=== PATIENT | female | born 1990 | race Caucasian/White ===

== ENCOUNTER 2017-07-01 08:32 | Inpatient (IN) | payer SELFPAY ==
[~2017-07-01] VITALS: Ht 157.5 cm; Wt 79.4 kg
[~2017-07-01 08:32] MED LIST: FERR-58 PO; PNV1CAPS17 PO
[2017-07-01 09:03] LABS: *URINE HCG, QUAL NEGATIVE (NEGATIVE)
[2017-07-01 09:05] LABS: BASOPHILS % (AUTO) 0.3 % (0.0-2.0); EOSINOPHILS # (AUTO) 0.1 K/uL (0.0-0.7); EOSINOPHILS % (AUTO) 0.6 % (0.0-7.0); HEMATOCRIT 35.4 % (31.2-41.9); HEMOGLOBIN 12.1 g/dL (10.9-14.3); LYMPHOCYTES # (AUTO) 1.5 K/uL (20.0-40.0); LYMPHOCYTES % (AUTO) 15.6 % (20.5-51.5); MEAN CORPUSCULAR HEMOGLOBIN 29.2 uug (24.7-32.8); MEAN CORPUSCULAR HGB CONC 34 g/dL (32.3-35.6); MEAN CORPUSCULAR VOLUME 85.6 fL (75.5-95.3); MONOCYTES # (AUTO) 0.6 K/uL (2.0-10.0); MONOCYTES % (AUTO) 6.5 % (0.0-11.0); NEUTROPHILS # (AUTO) 7.5 K/uL (1.8-8.9); PLATELET COUNT (AUTO) 278 K/uL (179-408); RED BLOOD CELL COUNT(AUTO) 4.14 MIL/uL (3.63-4.92); WHITE BLOOD COUNT (AUTO) 9.7 K/uL (3.8-11.8)
[2017-07-01 09:06] LABS: CREATININE 0.8 mg/dL (0.6-1.3); POTASSIUM 3.6 mmol/L (3.5-5.1)
[2017-07-01 09:12] LABS: BILIRUBIN,DIRECT 0.1 mg/dL (0.0-0.2); BILIRUBIN,TOTAL 0.3 mg/dL (0.2-1.0); TOTAL PROTEIN, SERUM 7.3 g/dL (6.4-8.2)
[2017-07-01 09:15] LABS: *CLARITY,URINE SLIGHTLY CLOUDY (CLEAR)
[2017-07-01 09:16] LABS: *BILIRUBIN,URIN NEGATIVE (NEGATIVE); *BLOOD, URINE TRACE (NEGATIVE); *COLOR,URINE YELLOW (YELLOW); *PROTEIN,URINE 1+ (NEGATIVE); UGLUCOSE NEGATIVE (NEGATIVE)
[2017-07-01 09:17] LABS: *KETONES,URINE TRACE (NEGATIVE); *UROBILINOGEN,URINE 0.2 E.U./dl (NORMAL); BACTERIA,URINE NONE SEEN /HPF (NONE SEEN); LEUKOCYTE ESTERASE ,URINE NEGATIVE (NEGATIVE); MUCUS,URINE MANY /LPF (0-FEW); NITRITE, URINE NEGATIVE (NEGATIVE); RBC,URINE 0-3 /HPF (0-3); SQUAMOUS EPITHELIAL CELL,UR MODERATE /HPF (NONE SEEN)
--- NOTE | 2017-07-01 09:31 | NUR ---
Note wild in EDM - 07/01/17 at 0933 by JOSLYN Patient says he is calling "[employer]" for a ride. Patient discharged to home in stable conditon. Written and verbal after care instructions given to patient. Patient verbalizes understanding of instructions. Marked decreased pains were expressed by patient.
--- NOTE | 2017-07-01 09:32 | NUR ---
Patient is resting comfortably in bed with eyes closed. PATIENT IS PAIN FREE AT THIS TIME.
--- NOTE | 2017-07-01 10:21 | NUR ---
"No med-surg bed or nurse available" per nursing catastrophe claims supervisor Maty. Patient will be on hold in ER until some discharges are done & completed in the 2nd floor medical-surgical unit for now. Patient and spouse notified. NPO status maintained and observed by patient.
--- NOTE | 2017-07-01 11:50 | NUR ---
Patient is resting and still waiting for med-surg bed/nurse, no acute change in condition seen.
--- NOTE | 2017-07-01 14:30 | NUR ---
Patient received in med/surg. No evidence of distress noted. Patient was compliant and admission process started.
[2017-07-01 16:57] VITALS: BP 109/68
--- NOTE | 2017-07-01 17:30 | NUR ---
Patient left the building without notifying staff. Intercepted by security but patient continued to walk out the door.
--- NOTE | 2017-07-01 17:45 | NUR ---
Patient returned to unit, and stated that all she wanted was to leave, partner returned patient back to hospital.
--- NOTE | 2017-07-01 18:54 | NUR ---
Patient currently in bed, no evidence of distress observed. Bed in low position, side rails up x2.
[2017-07-01 20:00] VITALS: BP 105/60
--- NOTE | 2017-07-01 20:00 | NUR ---
PATIENT SLEEPING IN BED, VITAL SIGNS WNL,FAMILY STAY AT BEDSIDE, CONTINUE CLOSELY MONITOR.
--- NOTE | 2017-07-02 04:59 | NUR ---
VITAL SIGNS REMAINS STABLE,NO ABDOMINAL PAIN,NO NAUSEA NOTED,CONTINUE NPO, IV FLUID GOING ON.
[2017-07-02 05:48] VITALS: BP 105/64
--- NOTE | 2017-07-02 07:10 | NUR ---
RECEIVED REPORT FROM [employer] NURSE, PATIENT IN BED ASLEEP, NO EVIDENCE OF DISTRESS NOTED. BED IN LOW POSITION, SIDE RAILS UP X2. BED ALARM ON.
[2017-07-02 07:28] LABS: BASOPHILS % (AUTO) 0.2 % (0.0-2.0); EOSINOPHILS # (AUTO) 0.1 K/uL (0.0-0.7); EOSINOPHILS % (AUTO) 1.1 % (0.0-7.0); HEMATOCRIT 36.3 % (37-47); HEMOGLOBIN 12.1 G/DL (12.0-16.0); LYMPHOCYTES # (AUTO) 1.3 K/UL (0.8-4.8); LYMPHOCYTES % (AUTO) 14.6 % (20.5-51.5); MEAN CORPUSCULAR HEMOGLOBIN 28.7 UUG (27.0-31.0); MEAN CORPUSCULAR HGB CONC 33 g/dL (32.0-37.0); MEAN CORPUSCULAR VOLUME 86.4 FL (81.0-99.0); MONOCYTES # (AUTO) 0.6 K/UL (0.1-1.30); MONOCYTES % (AUTO) 6.8 % (0.0-11.0); NEUTROPHILS # (AUTO) 7.1 K/UL (1.8-8.9); NEUTROPHILS % (AUTO) 77.3 % (38.5-71.5); PLATELET COUNT (AUTO) 277 K/UL (150-450); WHITE BLOOD COUNT (AUTO) 9.1 K/UL (4.0-11.2)
[2017-07-02 08:16] LABS: BILIRUBIN,TOTAL 0.4 mg/dL (0.2-1.0); CREATININE 0.6 mg/dL (0.6-1.3); MAGNESIUM 1.8 mg/dL (1.8-2.4); PHOSPHOROUS 3.4 mg/dL (2.5-4.9)
[2017-07-02 11:18] VITALS: BP 99/54
[2017-07-02 15:24] VITALS: BP 105/64
--- NOTE | 2017-07-02 16:46 | NUR ---
Patient has been cooperative with treatment plan. No evidence of distress at this time. No shortness of breath, no severe pain. Patient's IV is being discontinued, and discharge information provided.
[2017-07-02] MEDS ORDERED: HYDR-3326 PO (17:17)
--- NOTE | 2017-07-02 17:57 | NUR ---
Patient was discharged, prescriptions given, and taken to warehouse order picker area where she was met by partner.
== END 2017-07-02 18:15 | disposition home or self-care (01) | DRG 446 ==
LOC: ER 08:32 → MED 12:45
PROVIDERS: ADMIT Internal Medicine; ATTEND Internal Medicine
DX: K80.50 Calculus of bile duct without cholangitis or cholecystitis without obstruction (principal); E11.9 Type 2 diabetes mellitus without complications; E78.5 Hyperlipidemia, unspecified; E66.9 Obesity, unspecified; Z90.49 Acquired absence of other specified parts of digestive tract; F17.210 Nicotine dependence, cigarettes, uncomplicated; Z86.19 Personal history of other infectious and parasitic diseases; K21.9 Gastro-esophageal reflux disease without esophagitis; Z68.32 Body mass index [BMI] 32.0-32.9, adult
CPT/HCPCS: 36415; 83690; 83735; 84100; 84703; 85025; A4663; J1170; J2405; J3480; J3490; J7030